=== PATIENT | female | born 1995 | race Two or more races ===

== ENCOUNTER 2019-09-12 08:36 | Emergency (ER) | payer OTHER ==
[~2019-09-12] VITALS: Ht 152.4 cm; Wt 50.8 kg
[2019-09-12] MEDS ORDERED: [UNRECOGNIZED DRUG - OTHER] (08:48)
== END 2019-09-12 11:59 | disposition home or self-care (01) ==
LOC: ER 08:36
DX: O20.0 Threatened abortion (principal); O36.80X1 Pregnancy with inconclusive fetal viability, fetus 1; O26.851 Spotting complicating pregnancy, first trimester

== ENCOUNTER → 2020-01-28 | Outpatient (CLI) | payer OTHER ==
[~2020-01-28] MED LIST: FOLIC ACID PO; PRENATAL TABLE1 EAC1 PO; [UNRECOGNIZED DRUG - OTHER]; [UNRECOGNIZED DRUG - OTHER] PO
== END | disposition home or self-care (01) ==
LOC: PRENATAL 13:30
PROVIDERS: ATTEND Obstetrics & Gynecology Maternal & Fetal Medicine
DX: O35.0XX1 Maternal care for (suspected) central nervous system malformation in fetus, fetus 1 (principal); O98.512 Other viral diseases complicating pregnancy, second trimester; O35.3XX0 Maternal care for (suspected) damage to fetus from viral disease in mother, not applicable or unspecified; Z36.89 Encounter for other specified antenatal screening; Z3A.25 25 weeks gestation of pregnancy

== ENCOUNTER 2020-02-03 22:37 | Outpatient (CLI) | payer OTHER ==
[~2020-02-03 22:37] MED LIST changes: -FOLIC ACID PO; -PRENATAL TABLE1 EAC1 PO; -[UNRECOGNIZED DRUG - OTHER] PO
[2020-02-03] MEDS ORDERED: PRENATAL TABLE1 EAC1 PO (22:58)
[2020-02-03] MEDS ORDERED: FOLIC ACID PO (23:01)
[2020-02-03] MEDS ORDERED: [UNRECOGNIZED DRUG - OTHER] PO (23:05)
== END 2020-02-04 14:12 | disposition home or self-care (01) ==
LOC: OBS/DEL 22:37
PROVIDERS: ATTEND Obstetrics & Gynecology
DX: O26.892 Other specified pregnancy related conditions, second trimester (principal); R42 Dizziness and giddiness; H53.8 Other visual disturbances

== ENCOUNTER 2020-04-21 13:03 | Outpatient (CLI) | payer OTHER ==
[~2020-04-21 13:03] MED LIST changes: +FOLIC ACID PO; +PRENATAL TABLE1 EAC1 PO; +[UNRECOGNIZED DRUG - OTHER] PO
== END 2020-04-21 16:47 | disposition home or self-care (01) ==
LOC: OBS/DEL 13:03
PROVIDERS: ATTEND Obstetrics & Gynecology
DX: O60.03 Preterm labor without delivery, third trimester (principal); O46.8X3 Other antepartum hemorrhage, third trimester

== ENCOUNTER 2020-04-27 08:02 | Inpatient (IN) | payer OTHER ==
[~2020-04-27] VITALS: Ht 157.5 cm; Wt 68.9 kg
[2020-04-28] MEDS ORDERED: VITAMIN B-6250 MG PO (07:51)
[2020-04-28] MEDS ORDERED: FOLIC ACID20 MG PO (07:51)
== END 2020-04-29 12:04 | disposition home or self-care (01) | DRG 807 ==
LOC: OB/GYN 08:02 → LDR 08:02 → OB/GYN 15:46
PROVIDERS: ADMIT Obstetrics & Gynecology; ATTEND Obstetrics & Gynecology
PROC: 10E0XZZ Delivery of Products of Conception, External Approach (ICD-10-PCS; principal; 2020-04-27)
PROC: 0UQMXZZ Repair Vulva, External Approach (ICD-10-PCS; 2020-04-27)
PROC: 4A1HXCZ Monitoring of Products of Conception, Cardiac Rate, External Approach (ICD-10-PCS; 2020-04-27)
DX: O71.82 Other specified trauma to perineum and vulva (principal); Z37.0 Single live birth; Z3A.37 37 weeks gestation of pregnancy; Z20.828 Contact with and (suspected) exposure to other viral communicable diseases